=== PATIENT | female | born 1960 | race Caucasian/White ===

== ENCOUNTER 2018-10-03 12:04 | Outpatient (REF) | payer BC, SELFPAY ==
[2018-10-03 21:53] LABS: ALT 36 U/L (12-78); AST 21 U/L (15-37); Albumin 4.1 g/dL (3.4-5.0); Alkaline Phosphatase 89 U/L (46-116); Anion Gap 9.5 mmol/L (3-11); BUN 15 mg/dL (7-18); Bilirubin, Total 0.5 mg/dL (0.2-1.0); CO2 25.5 mmol/L (21.0-32.0); CREATININE 0.76 mg/dL (0.55-1.02); Calcium 9.3 mg/dL (8.5-10.1); Chloride 104 mmol/L (98-107); Cholesterol 244 mg/dL (50-200); Glucose 98 mg/dL (70-100); HDL Cholesterol 71 mg/dL (40-60); LDL CHOLESTEROL 157 mg/dL (<100); Potassium 4.3 mmol/L (3.5-5.1); Sodium 139 mmol/L (136-145); TSH (W/Ref FT4) 2.29 uIU/mL (0.358-3.74); Total Protein 7.6 g/dL (6.4-8.2); Triglyceride 84 mg/dL (30-150)
[2018-10-07 09:33] LABS: Hepatitis C Ab w Rflx HCV PCR Negative (NEGAT)
== END 2018-10-03 12:24 ==
LOC: NCHCN 12:04
PROVIDERS: PCP Family Medicine; Visit Provider Family Medicine
DX: E78.5 Hyperlipidemia, unspecified (principal); E66.01 Morbid (severe) obesity due to excess calories; Z11.59 Encounter for screening for other viral diseases
CPT/HCPCS: 80053; 80061; 83721; 86803; 84443

== ENCOUNTER 2020-05-17 09:25 | Outpatient (REF) | payer BC, SELFPAY ==
[2020-05-17 21:17] LABS: Anion Gap 10.7 mmol/L (3-11); BUN 11 mg/dL (7-18); CO2 27.3 mmol/L (21.0-32.0); CREATININE 0.57 mg/dL (0.55-1.02); Calcium 8.7 mg/dL (8.5-10.1); Calculated LDL 118 mg/dL (<100); Chloride 105 mmol/L (98-107); Cholesterol 186 mg/dL (<200); Glucose 94 mg/dL (74-106); HDL Cholesterol 55 mg/dL (40-60); Potassium 3.9 mmol/L (3.5-5.1); Sodium 143 mmol/L (136-145); Triglyceride 68 mg/dL (<150)
[2020-05-17 21:28] LABS: Hemoglobin A1C 6.2 % (3.8-5.6)
== END 2020-05-17 09:45 ==
LOC: NCHCN 09:25
PROVIDERS: PCP Family Medicine; Visit Provider Registered Nurse
DX: I10 Essential (primary) hypertension (principal); R73.03 Prediabetes; E66.01 Morbid (severe) obesity due to excess calories
CPT/HCPCS: 80048; 80061; 83036

== ENCOUNTER 2021-07-13 22:28 | Outpatient (REF) | payer BC, SELFPAY ==
[2021-07-13 22:11] LABS: Anion Gap 9.9 mmol/L (3-11); BUN 19 mg/dL (7-18); CO2 27.1 mmol/L (21.0-32.0); CREATININE 0.6 mg/dL (0.55-1.02); Calcium 9.5 mg/dL (8.5-10.1); Chloride 104 mmol/L (98-107); Glucose 84 mg/dL (74-106); Sodium 141 mmol/L (136-145)
== END 2021-07-13 22:29 | disposition home or self-care (01) ==
LOC: NCHCN 22:28
PROVIDERS: PCP Family Medicine; Visit Provider Family Medicine
DX: I10 Essential (primary) hypertension (principal); R73.03 Prediabetes; E66.01 Morbid (severe) obesity due to excess calories
CPT/HCPCS: 80048

== ENCOUNTER 2022-10-06 16:13 | Outpatient (REF) | payer BC, SELFPAY ==
[2022-10-06 16:49] LABS: HCT 42.2 % (36.0-46.0); HGB 13.7 g/dL (11.2-15.7); MCH 28.6 pg (27.0-33.0); MCHC 32.5 % (32.0-36.0); MCV 88 fL (80-95); MPV 8.7 fL (8.0-11.0); Platelet Count 402 10^3/uL (130-400); RBC 4.79 10^6/uL (3.93-5.22); RDW 13.7 % (11.7-14.6); RDW-SD 44.2 fL; WBC 8.04 10^3/uL (4.4-10.8)
[2022-10-06 17:11] LABS: BUN 15 mg/dL (7-18); CREATININE 0.7 mg/dL (0.55-1.02); Calcium 9.5 mg/dL (8.5-10.1); Chloride 102 mmol/L (98-107); Estimated GFR 97.12 (mL/min/1.73m2); Glucose 96 mg/dL (74-106); Potassium 3.9 mmol/L (3.5-5.1); Sodium 138 mmol/L (136-145)
== END 2022-10-06 16:14 | disposition home or self-care (01) ==
LOC: NCHCN 16:13
PROVIDERS: PCP Family Medicine; Visit Provider Family Medicine
DX: Z00.00 Encounter for general adult medical examination without abnormal findings (principal); I10 Essential (primary) hypertension; R73.03 Prediabetes; E66.01 Morbid (severe) obesity due to excess calories; F41.8 Other specified anxiety disorders
CPT/HCPCS: 80048; 85027; 83036

== ENCOUNTER 2024-06-17 20:07 | Outpatient (REF) | payer BC, SELFPAY ==
[2024-06-17 21:47] LABS: BUN 19 mg/dL (7-18); CREATININE 0.8 mg/dL (0.55-1.02); Calcium 9.4 mg/dL (8.5-10.1); Chloride 104 mmol/L (98-107); Estimated GFR 81.72 (mL/min/1.73m2); Glucose 91 mg/dL (74-106); Potassium 3.8 mmol/L (3.5-5.1); Sodium 140 mmol/L (136-145)
== END 2024-06-17 20:08 | disposition home or self-care (01) ==
LOC: NCHCN 20:07
PROVIDERS: PCP Family Medicine; Visit Provider Family Medicine
DX: I10 Essential (primary) hypertension (principal)
CPT/HCPCS: 80048

== ENCOUNTER 2025-01-23 12:41 | Outpatient (REF) | payer BC, SELFPAY | END 2025-01-23 12:42 | disposition home or self-care (01) | LOC: NCHCN 12:41 | PROVIDERS: PCP Family Medicine; Visit Provider Family Medicine | DX: E66.9 Obesity, unspecified (principal) | CPT/HCPCS: 84443 ==

== ENCOUNTER 2025-01-28 11:17 | Outpatient (CLI) | payer BC, SELFPAY ==
--- NOTE | 2025-01-28 09:00 | DI.RAD_ITS ---
Exam(s) XR KNEE RT 4V AP,LAT,FRANK,PAT EXAM: XR KNEE RT 4V AP,LAT,FRANK,PAT CLINICAL HISTORY: RIGHT KNEE PAIN. TECHNIQUE: 2D digital imaging was performed. Three views. COMPARISON: No exams were available for comparison FINDINGS: BONES: No acute fracture is present. No bony destructive lesion is seen. JOINTS: There is severe narrowing of the patellofemoral joint laterally, with a [id number] appearan ce. There is lateral patellar tilt and lateral patellar subluxation. There is prominent periarticul ar spurring laterally and superiorly. No joint effusion is seen. There is [id number] narrowing of the medial femoral tibial joint space. Chondrocalcinosis is p resent. SOFT TISSUE: Normal. 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 DATA REPOSITORY: RADIATION DOSE DELIVERED:
--- NOTE | 2025-01-28 09:05 | DI.RAD_ITS ---
Exam(s) XR HIP RT COMPLETE AP PELVIS EXAM: XR HIP RT COMPLETE AP PELVIS CLINICAL HISTORY: RIGHT HIP PAIN. TECHNIQUE: 2D digital imaging was performed. Two views COMPARISON: No exams were available for comparison FINDINGS: BONES: No acute fracture is present. No bony destructive lesion is seen. JOINTS: The right hip joint space is mildly narrowed. There is periarticular spurring greater at the inferior acetabulum. Left hip prosthesis. SOFT TISSUE: Heterotopic calcification above the level of the greater trochanter. IMPRESSION: Mild degenerative changes of the right hip. DATA REPOSITORY: RADIATION DOSE DELIVERED:
== END 2025-01-28 11:18 | disposition home or self-care (01) ==
LOC: DIORS 11:17
PROVIDERS: PCP Family Medicine; Visit Provider Physician Assistant
DX: M25.561 Pain in right knee; M25.551 Pain in right hip; M16.11 Unilateral primary osteoarthritis, right hip
CPT/HCPCS: 73502; 73564